=== PATIENT | male | born 1970 | race Caucasian/White ===

== ENCOUNTER 2020-04-05 01:35 | Inpatient (IN) | payer OTHER ==
[2020-04-05] VITALS (14 sets, daily range): BP systolic 123–143; BP diastolic 71–98
[~2020-04-05] VITALS: Ht 182.9 cm; Wt 100.4 kg
[2020-04-05] MEDS ORDERED: ASA81BEC PO (05:11)
[2020-04-05] MEDS ORDERED: CARVEDILOL3.125 MG PO (05:11)
[2020-04-05] MEDS ORDERED: EMGALITY120 MG/1 M SUBQ (05:12)
[2020-04-05] MEDS ORDERED: CELEXA 20 MG TA20 MG PO (05:12)
[2020-04-05] MEDS ORDERED: LIPITOR 40 MG T40 M1 PO (05:13)
[2020-04-05] MEDS ORDERED: PROAIR HFA8.5 GM INH (05:13)
[2020-04-05] MEDS ORDERED: TOPIRAMATE50 MG PO (05:14)
[2020-04-05] MEDS ORDERED: TRAZODONE HCL50 MG PO (05:14)
[2020-04-05] MEDS ORDERED: KETOROLAC TROME10 MG PO (05:15)
[2020-04-05] MEDS ORDERED: TRAMADOL 50 MG50 MG PO (05:16)
[2020-04-05] MEDS ORDERED: TAMSULOSIN HCL0.4 MG PO (05:16)
--- NOTE | 2020-04-05 05:19 | NUR ---
PATIENT TRANSFERRED FROM [facility]. ASSUMED CARE OF PATIENT AT 0255. AT ASSESSMENT PATIENT DENIES CHEST PAIN AND STATES THAT HE HAS PAIN 2/10 IN HIS LEFT CLAVICLE. PATIENT STATES THAT HE HAD FALLEN OFF A LADDER RECENTLY. PATIENT ALSO COMPLAINED OF GENERAL BACK PAIN, RATING IT A 5/10, AND STATES IT IS A CHRONIC ISSUE AND HAS HAD MULTIPLE BACK SURGERIES. PATIENT STATED THAT HIS SIGNIFICANT OTHER WAS ON HER WAY TO THE HOSPITAL FROM 100 MILES AWAY. INFORMED PATIENT OF CURRENT VISITOR POLICY. PATIENT UPSET AND STATED HE WAS GOING TO LEAVE IF SHE COULDN'T SPEND THE NIGHT WITH HIM. EDUCATED PATIENT ABOUT RIGHT TO LEAVE AMA AND THE IMPORTANCE OF STAYING TO RECEIVE CARE. PATIENT CONTINUED WITH ASSESSMENT AND HISTORY. IT WAS REPORTED BY RACK WASHER THAT PATIENT AGAIN STATED HE WAS GOING TO LEAVE IF HE COULDN'T EAT ANYTHING. RACK WASHER STATED THAT SHE EDUCATED PATIENT ABOUT GOING AMA AND THE RISKS OF LEAVING. PATIENT CURRENTLY REMAINS IN HOSPITAL.
[2020-04-05 07:19] LABS: CHOLESTEROL 196 mg/dL (<200); HDL CHOLESTEROL 36 mg/dL (>40); LDL CHOLESTEROL 145 mg/dL (<100); TC:HDL 5.4 Ratio (Not establshd); TRIGLYCERIDE 75 mg/dL (<150); VLDL 15 mg/dL (<40)
[2020-04-05 07:42] LABS: HEMATOCRIT 37.4 % (42.0-52.0); HEMOGLOBIN 12.9 gm/dL (14.0-18.0); MCH 32.5 pg (26.0-34.0); MCHC 34.5 g/dL (28.0-37.0); MCV 94.4 fL (80.0-100.0); RBC 3.97 mil/uL (4.50-6.00); WBC 5.2 thou/uL (4.0-11.0)
[2020-04-05 07:50] LABS: CALCIUM 8.3 mg/dL (8.5-10.1)
--- NOTE | 2020-04-05 10:30 | 2DMMODE ---
[facility] [address] [place] [address] 2 D/M-MODE ECHOCARDIOGRAM Name: VIOLETA TRAN Room #: 207-P ADM IN M.R.#: [id number] Admission: 04/05/20 Attend Phys: Jesus Renner MD Discharge: Date of : 68 Report #: [id number] THIS REPORT FOR: cc: [facility] - Clinic physician unknown [facility] - Clinic physician unknown Todd Graham MD [facility] ~ APPROVED REPORT Study performed: 04/05/2020 09:37:24 EXAM: Comprehensive 2D, Doppler, and color-flow Echocardiogram Patient Location: Bedside Room #: 207 Status: routine BSA: 2.20 HR: 77 bpm BP: 133/98 mmHg Rhythm: NSR/PVCs Other Information Study Quality: Adequate/no cooperation, sitting up in bed. Indications Chest pain, short of breath, elevated troponin. Hx: DC, PCI, HTN, HLP, DM. 2D Dimensions RVDd: 31.95 mm IVSd: 10.84 (7-11mm) LVOT Diam: 23.43 (18-24mm) LVDd: 44.97 mm PWd: 10.84 (7-11mm) Ascending Ao: 32.81 (22-36mm) LVDs: 32.22 (25-40mm) Aortic Root: 36.86 mm Volumes Left Atrial Volume (Systole) Single Plane 4CH: 43.80 mL Single Plane 2CH: 55.36 mL LA ESV Index: 24.00 mL/m2 Aortic Valve AoV Peak Nacho.: 0.97 m/s AO Peak Gr.: 3.79 mmHg LVOT Max P.38 mmHg LVOT Max V: 0.77 m/s [facility] [address] [address] 2 D/M-MODE ECHOCARDIOGRAM Name: VIOLETA TRAN Room #: 207-P [facility] IN [facility]#: [id number] Admission: 04/05/20 Attend Phys: Jesus Renner MD Discharge: Date of : 68 Report #: [id number] ROSEANN Vmax: 3.42 cm2 Mitral Valve E/A Ratio: 0.8 MV Decel. Time: 163.08 ms MV E Max Nacho.: 0.69 m/s MV A Nacho.: 0.87 m/s MV PHT: 47.29 ms IVRT: 89.97 ms Pulmonary Valve PV Peak Nacho.: 0.90 m/s PV Peak Gr.: 3.21 mmHg Tricuspid Valve TR Peak Nacho.: 2.02 m/s TR Peak Gr.: 16.28 mmHg Left Ventricle The left ventricle is normal size. Regional wall motion is not well visualized but grossly normal. There is normal left ventricular wall thickness. Left ventricular systolic function is low normal. LVEF is 55%. Mild diastolic dysfunction Right Ventricle The right ventricle is normal size. The right ventricular systolic function is normal. Atria The left atrium size is normal. The right atrium size is normal. Aortic Valve The aortic valve is normal in structure. No aortic regurgitation is present. There is no aortic valvular stenosis. Mitral Valve The mitral valve is normal in structure. Mild mitral regurgitation. Tricuspid Valve The tricuspid valve is normal in structure. Trace tricuspid regurgitation. Estimated PAP is normal Pulmonic Valve The pulmonary valve is normal in structure. Trace pulmonic regurgitation. [facility] [address] [place] [address] [place] [address] 2 D/M-MODE ECHOCARDIOGRAM Name: VIOLETA TRAN Room #: 207-[facility] IN M.R.#: [id number] Admission: 04/05/20 Attend Phys: Jesus Renner MD Discharge: Date of : 68 Report #: [id number] Great Vessels The aortic root is normal in size. The ascending aorta is normal in size. IVC is not well visualized. Pericardium There is no pericardial effusion. <Conclusion> Left ventricular systolic function is low normal. Regional wall motion is not well visualized but grossly normal. LVEF is 55%. Mild diastolic dysfunction The aortic valve is normal in structure. No aortic regurgitation or stenosis. The mitral valve is normal in structure. Mild mitral regurgitation. Trace tricuspid regurgitation. Estimated pulmonary artery pressure is normal There is no pericardial effusion. <ELECTRONICALLY SIGNED> By: Todd Graham MD, [facility] 04/05/20 1029 1029 1029 Todd Graham MD, [facility] /INF
--- NOTE | 2020-04-05 14:30 | EKG ---
[facility] [place] [address] ELECTROCARDIOGRAM REPORT Name: VIOLETA TRAN Room #: 207-P ADM IN M.R.#: [id number] Admission: 04/05/20 Attend Phys: Jesus Renner MD Discharge: Date of : 68 Report #: [id number] THIS REPORT FOR: cc: [facility] - Clinic physician unknown [facility] - Clinic physician unknown Daniel Ureña MD ~ THIS REPORT FOR: //name// [facility] Test Date: 2020-04-05 Test Time: 08:19:36 Pat Name: VIOLETA TRAN Department: Room: 207 Gender: M Cad Administrator: ARIE : 1970 Requested By: [employer] Order Number: [id number] MD: Daniel Ureña Measurements Intervals [place] Rate: 81 P: 54 CA: 183 QRS: 23 QRSD: 93 T: 48 QT: 368 QTc: 428 Interpretive Statements Sinus rhythm No previous ECG available for comparison Electronically Signed On 04-05-2020 14:30:10 CDT by Daniel Ureña [email or web address] <ELECTRONICALLY SIGNED> By: Daniel Ureña MD 04/05/20 1430 8 8 Daniel Ureña MD /ASAF
--- NOTE | 2020-04-05 16:12 | NUR ---
Patient transferred to [facility] from [facility] with [facility]. Patient sleeping, girlfriend at bedside. Patient and girlfriend lives together in independent apt. All needs on one level. Patient has no health insurance he is applying for disability. Patient has rec medicaid and was [place]. Girl friend reports it lapsed. Unsure if needed to reapply. Face sheet sent to [id number] PCP Dr Cali. [facility]em[facility] following
--- NOTE | 2020-04-05 16:46 | NUR ---
PT CARE ASSUMED APPROX 0700. ASSESSMENT CHARTED. PT DENIES PAIN AND SOA. VSS. UP WITH STEADY GAIT. PT ASLEEP MOST OF SHIFT. EASILY AROUSABLE. POST CATH VSS. PT NONCOMPLIANT WITH RLE IMMOBILITY. PT'S GIRLFRIEND AT BEDSIDE ASSISTING WITH IMMOBILITY REMINDERS FOR PT. NO BLEEDING OR HEMATOMA NOTED TO RIGHT GROIN POST CATH SITE AT THIS TIME. PT'S GIRLFRIEND AND PT RECEIVED CLINICAL UPDATES AFTER PROCEDURE AND DENIES QUESTIONS. NO DISTRESS NOTED.
--- NOTE | 2020-04-05 19:28 | NUR ---
PT LEFT UNIT WITHOUT NOTIFYING STAFF. UNABLE TO COMPLETE POST CATH INTERVENTION FOR 0. NIGHT NURSE AWARE. PT RETUNRED LATER AND RESTAURANT LINE SERVER AGREEABLE TO COLLECT VS. RIGHT GROIN ASSESSED WITH THIS NURSE AND NIGHT NURSE DURING REPORT. NO DISTRESS NOTED.
[2020-04-06] VITALS (8 sets, daily range): BP systolic 93–127; BP diastolic 63–88
[2020-04-06 01:06] LABS: GLYCOHEMOGLOBIN (HGB A1C) 4.9 % (4.8-5.6)
[2020-04-06 06:51] LABS: HEMATOCRIT 35.4 % (42.0-52.0); HEMOGLOBIN 11.7 gm/dL (14.0-18.0); MCH 31.2 pg (26.0-34.0); MCHC 32.9 g/dL (28.0-37.0); MCV 94.7 fL (80.0-100.0); RBC 3.74 mil/uL (4.50-6.00); RDW 13.8 % (10.5-14.5); WBC 6.2 thou/uL (4.0-11.0)
[2020-04-06 07:13] LABS: CALCIUM 8.3 mg/dL (8.5-10.1); CREATININE 0.9 mg/dL (0.7-1.3); MAGNESIUM 1.9 mg/dL (1.8-2.4); TROPONIN-I 0.56 ng/mL (<0.06)
--- NOTE | 2020-04-06 07:13 | NUR ---
ASSUMED PT CARE AT 1900, PT IS AWAKE, ALERT AND ORIENTEDX4, SR ON THE MONITOR ASSESSMENTS CHARTED, RIGHT GROIN CDI, PAIN MEDICINE GIVEN PRN ORDERED, LAYING IN BED, NO DISTRESS NOTED, PASSED ON REPORT TO DAY NURSE
[2020-04-06] MEDS ORDERED: LISINOPRIL2.5 MG PO (09:26)
[2020-04-06] MEDS ORDERED: IMDUR 30 MG TAB30 M1 PO (09:26)
[2020-04-06] MEDS ORDERED: EFFIENT10 MG PO (09:26)
--- NOTE | 2020-04-06 09:59 | NUR ---
Sp with Dr Renner and armament mechanic practioner. Plan to vouch medications [place] for compliance. Prescriptions taken to [facility] $65,45
--- NOTE | 2020-04-06 10:59 | EKG ---
[facility] [place] [address] ELECTROCARDIOGRAM REPORT Name: VIOLETA TRAN Room #: 207-P ADM IN M.R.#: [id number] Admission: 04/05/20 Attend Phys: Jesus Renner MD Discharge: Date of : 68 Report #: [id number] THIS REPORT FOR: cc: [facility] - Clinic physician unknown [facility] - Clinic physician unknown Daniel Ureña MD ~ THIS REPORT FOR: //name// [facility] Test Date: 2020-04-06 Test Time: 09:04:52 Pat Name: VIOLETA TRAN Department: Room: 207 P Gender: M Teaching Aide: ARIE : 1970 Requested By: Trey Reyes Order Number: [id number] MD: Daniel Ureña Measurements Intervals [place] Rate: 84 P: 19 CO: 184 QRS: 40 QRSD: 91 T: 52 QT: 358 QTc: 424 Interpretive Statements Sinus rhythm Low voltage, precordial leads Baseline wander in lead(s) V5 Compared to ECG 04/05/2020 08:19:36 Low QRS voltage now present Electronically Signed On 04-06-2020 10:59:23 CDT by Daniel Ureña [email or web address] <ELECTRONICALLY SIGNED> By: Daniel Ureña MD 04/06/20 1059 3 3 Daniel Ureña MD /EPI
--- NOTE | 2020-04-06 17:21 | NUR ---
PT CARE ASSUMED APPROX 0700. ASSESSMENTS CHARTED. PT REPORTED CHEST PAIN THIS AM AND DISCHARGE WAS DELAYED. EKG SHOWED NO ABNORMALITIES AND PAIN BEING DESCRIBED CONTINUED TO CHANGE AND WAS NONTRADITIONAL CARDIAC PAIN. NEW MEDS GIVEN FOR TREATMENT. AFTER MOST OF THE DAY PT BEGAN TO DENY CHEST PAIN AND DEMANDING TO DISCHARGE. DR LAWRENCE WAS NOTIFIED AND WAS AGREEABLE THAT IF PT WAS DENYING CHEST PAIN HE COULD DISCHARGE. DISCHARGE EDUCATION COMPLETED WITH PT. HE DENIES QUESTIONS OR CONCERNS REGARDING POST HOSPITAL CARES AND F/U. MED COMPLED FOR PT FROM OUTPT PHARMACY. IV OUT, TELE OFF. ALL BELONGINGS IN PT POSSESSION. WILL ESCORT PT OUT ONCE HE NOTIFIES STAFF THAT HIS TRANSPORTATION HAS ARRIVED. VSS.
--- NOTE | 2020-04-06 17:44 | NUR ---
PT ESCORTED OFF UNIT APPROX 15 MIN AGO
== END 2020-04-06 17:43 | disposition home or self-care (01) | DRG 251 ==
LOC: 2N 01:35
PROVIDERS: Nurse Practitioner; Nurse Practitioner Family; ADMIT Hospitalist; ATTEND Hospitalist
PROC: 4A023N7 Measurement of Cardiac Sampling and Pressure, Left Heart, Percutaneous Approach (ICD-10-PCS; principal; 2020-04-06)
PROC: 02703ZZ Dilation of Coronary Artery, One Artery, Percutaneous Approach (ICD-10-PCS; principal; 2020-04-06)
PROC: B2111ZZ Fluoroscopy of Multiple Coronary Arteries using Low Osmolar Contrast (ICD-10-PCS; principal; 2020-04-06)
DX: I21.4 Non-ST elevation (NSTEMI) myocardial infarction (principal); I10 Essential (primary) hypertension; E78.5 Hyperlipidemia, unspecified; E11.9 Type 2 diabetes mellitus without complications; I25.10 Atherosclerotic heart disease of native coronary artery without angina pectoris; N40.0 Benign prostatic hyperplasia without lower urinary tract symptoms; F32.9 Major depressive disorder, single episode, unspecified; F41.9 Anxiety disorder, unspecified; F17.220 Nicotine dependence, chewing tobacco, uncomplicated; F19.10 Other psychoactive substance abuse, uncomplicated; E87.6 Hypokalemia; K21.9 Gastro-esophageal reflux disease without esophagitis; I08.1 Rheumatic disorders of both mitral and tricuspid valves; I25.2 Old myocardial infarction; Z95.5 Presence of coronary angioplasty implant and graft; Z87.442 Personal history of urinary calculi; Z82.49 Family history of ischemic heart disease and other diseases of the circulatory system; Z80.42 Family history of malignant neoplasm of prostate; Z80.6 Family history of leukemia; Z88.8 Allergy status to other drugs, medicaments and biological substances; Z91.14 Patient's other noncompliance with medication regimen
CPT/HCPCS: 10081